=== PATIENT | female | born 1995 | race Caucasian/White ===

== ENCOUNTER 2016-09-28 12:09 | Emergency (ER) | payer BC ==
[2016-09-28 14:28] LABS: Hematocrit 42 % (35-47); Hemoglobin 13.8 g/dl (12.0-16.0); Mean Corpuscular HGB Conc 33 g/dl (31-36); Mean Corpuscular Hemoglobin 28 pg (27-31); Mean Corpuscular Volume 84 fL (80-97); Mean Platelet Volume 8 um3 (7.4-10.4); Red Blood Count 4.94 10^6/ul (4.0-5.4); Red Cell Distribution Width 14 % (10.5-15); White Blood Count 9.4 10^3/ul (3.5-10.8)
[2016-09-28 14:45] LABS: ALT 44 U/L (7-52); AST 34 U/L (13-39); Albumin 4.9 g/dL (3.2-5.2); Alkaline Phosphatase 68 U/L (34-104); Anion Gap 10 mmol/L (2-11); Blood Urea Nitrogen 10 mg/dL (6-24); CO2 Carbon Dioxide 23 mmol/L (22-32); Calcium 10.1 mg/dL (8.6-10.3); Chloride 103 mmol/L (101-111); EGFR African American 112.7 (>60); EGFR Non-African American 87.6 (>60); Globulin 3.2 g/dL (2-4); Glucose 94 mg/dL (70-100); Magnesium 1.9 mg/dL (1.9-2.7); Potassium 3.9 mmol/L (3.5-5.0); Sodium 136 mmol/L (133-145); Total Protein 8.1 g/dL (6.4-8.9)
[2016-09-28] MEDS: NS 0.9% 1000 ML* 2,000 ML IV ONE ×2 (15:12→15:44)
[2016-09-28 15:20] VITALS: BP 111/66
[2016-09-28 15:26] LABS: Urine Bilirubin Negative (Negative); Urine Glucose Negative (Negative); Urine Nitrite Negative (Negative)
--- NOTE | 2016-09-28 21:58 | ED ---
Victor M Williamson Auryana, scribed for Carlos Ng MD on 09/28/16 at 1359 . Palpitations / Dysrhythmia - HPI Summary HPI Summary: 21 year old female comes in with palpitations and CUMMINGS starting this morning while walking at work. She reports that she "felt fine" this morning but at work her heart began to race and she was SOB while walking. At school HR 124- on arrival 105- normal HR 60-80 per patient. She also states that with the exertion she has pain underneath her ribs. She reports that yesterday she had one episode of dizziness and nausea with diarrhea due to nervousness per patient - now resolved. She denies any hair loss, fever/temperature fluctuations , chills, abdominal pain, back pain, chest pain, calf pain, or any LE edema. No recent surgeries. She reports good fluid intake. She denies any oral control pills - states was was control and will be filling new Rx soon. She does not believe she is . PMHx is significant for oral surgery - EKG for clearance and to monitor HR in Sx. No history of HTN, HLD, DM, or heart murmurs. FMHx is significant for thyroid disease-hyperthyroid. - History of Current Complaint Chief Complaint: EDDysrhythmPalp Time Seen by Provider: 09/28/16 13:40 Hx Obtained From: Patient Onset/Duration: Sudden Onset - THIS MORING, Lasting Hours, Still Present Timing: Constant Severity Initially: Mild Severity Currently: Mild Character: Fast - >100 Aggravating: Exertion Associated Signs & Symptoms: Dizzy - YESTERDAY - NONE NOW, Shortness of Breath, Nausea - YESTERDAY - NONE NOW - Allergy/Home Medications Allergies/Adverse Reactions: Allergies Allergy/AdvReac Type Severity Reaction Status Date / Time No Known Allergies Allergy Verified 09/28/16 15:11 PMH/Surg Hx/FS Hx/Imm Hx Endocrine/Hematology History: Denies: Hx Thyroid Disease Cardiovascular History: Denies: Hx Hypertension - Surgical History Surgery Procedure, Year, and Place: ORAL SURGERY Infectious Disease History: No Infectious Disease History: Denies: Traveled Outside the [place] in Last 30 Days - Family History Known Family History: Positive: Other - thyroid disease - both siblings Negative: Cardiac Disease - Social History Occupation: Employed Full-time Lives: With Family - WITH SIGNIFICANT OTHER Alcohol Use: None Hx Substance Use: No Substance Use Type: Reports: None Hx Tobacco Use: No Smoking Status (MU): Never Smoked Tobacco Review of Systems Positive: Other - dizziness - yesterday - now resolved. Negative: Fever Eyes: Negative ENT: Negative Positive: Palpitations, Other - pain underneath the ribs . Negative: Chest Pain Positive: Shortness Of Breath - CUMMINGS Gastrointestinal: Negative Negative: Abdominal Pain, Diarrhea - one episode yesterday - no resolved, Nausea - now resolved Genitourinary: Negative Musculoskeletal: Negative Negative: Edema Skin: Negative Neurological: Negative Psychological: Normal All Other Systems Reviewed And Are Negative: Yes Physical Exam - Summary Physical Exam Summary: The patient is well-nourished in no acute distress and in no acute pain. The skin is warm and dry and skin color reflects adequate perfusion. Good skin turgor. HEENT: The head is normocephalic and atraumatic. The pupils are equal and reactive. The conjunctivae are clear and without drainage. Nares are patent and without drainage. Mouth reveals moist mucous membranes and the throat is without erythema and exudate. The external ears are intact. The ear canals are patent and without drainage. The tympanic membranes are intact. Neck is supple with full range of motion and non-tender. There are no carotid bruits. There is no neck vein distension. Thyroid is palpable but is not enlarged. Respiratory: Chest is non-tender. Lungs are clear to auscultation and breath sounds are symmetrical and equal. Cardiovascular: Heart is regular rate and rhythm on exam. There is no murmur or rub auscultated. There is no peripheral edema and pulses are symmetrical and equal. Abdomen: The abdomen is soft and non-tender. There are normal bowel sounds heard in all four quadrants and there is no organomegaly palpated. Musculoskeletal: There is no back pain noted. Extremities are non-tender with full range of motion. There is good capillary refill. There is no peripheral edema or calf tenderness elicited. Neurological: Patient is alert and oriented to person, place and time. The patient has symmetrical motor strength in all four extremities. Cranial nerves are grossly intact. Deep tendon reflexes are symmetrical and equal in all four extremities. Psychiatric: The patient has an appropriate affect and does not exhibit any anxiety or depression. Triage Information Reviewed: Yes Vital Signs On Initial Exam: Initial Vitals Temp Pulse Resp BP Pulse Ox 99.3 F 123 20 146/87 100 09/28/16 12:16 09/28/16 12:16 09/28/16 12:16 09/28/16 12:16 09/28/16 12:16 Vital Signs Reviewed: Yes Diagnostics - Vital Signs Vital Signs Temp Pulse Resp BP Pulse Ox 09/28/16 13:20 99.0 F 105 20 131/93 100 09/28/16 12:20 98.2 F 128 16 146/87 100 09/28/16 12:16 99.3 F 123 20 146/87 100 - Laboratory Lab Results: Lab Results 09/28/16 09/28/16 09/28/16 Range/Units 14:20 14:20 14:20 WBC 9.4 (3.5-10.8) 10^3/ul RBC 4.94 (4.0-5.4) 10^6/ul Hgb 13.8 (12.0-16.0) g/dl Hct 42 (35-47) % MCV 84 (80-97) fL MCH 28 (27-31) pg MCHC 33 (31-36) g/dl RDW 14 (10.5-15) % Plt Count 332 (150-450) 10^3/ul MPV 8 (7.4-10.4) um3 Neut % (Auto) 71.8 (38-83) % Lymph % (Auto) 22.0 L (25-47) % [place] % (Auto) 5.4 (1-9) % Eos % (Auto) 0.1 (0-6) % Baso % (Auto) 0.7 (0-2) % Absolute Neuts (auto) 6.7 (1.5-7.7) 10^3/ul Absolute Lymphs (auto) 2.1 (1.0-4.8) 10^3/ul Absolute Monos (auto) 0.5 (0-0.8) 10^3/ul Absolute Eos (auto) 0 (0-0.6) 10^3/ul Absolute Basos (auto) 0.1 (0-0.2) 10^3/ul Absolute Nucleated RBC 0 10^3/ul Nucleated RBC % 0 D-Dimer, Quantitative (Less Than 230) ng/mL Sodium 136 (133-145) mmol/L Potassium 3.9 (3.5-5.0) mmol/L Chloride 103 (101-111) mmol/L Carbon Dioxide 23 (22-32) mmol/L Anion Gap 10 (2-11) mmol/L BUN 10 (6-24) mg/dL Creatinine 0.83 (0.51-0.95) mg/dL Est GFR ( Amer) 112.7 (>60) Est GFR (Non-Af Amer) 87.6 (>60) BUN/Creatinine Ratio 12.0 (8-20) Glucose 94 (70-100) mg/dL Lactic Acid 0.9 (0.5-2.0) mmol/L Calcium 10.1 (8.6-10.3) mg/dL Magnesium 1.9 (1.9-2.7) mg/dL Total Bilirubin 0.70 (0.2-1.0) mg/dL AST 34 (13-39) U/L ALT 44 (7-52) U/L Alkaline Phosphatase 68 (34-104) U/L Troponin I 0.00 (<0.04) ng/mL Total Protein 8.1 (6.4-8.9) g/dL Albumin 4.9 (3.2-5.2) g/dL Globulin 3.2 (2-4) g/dL Albumin/Globulin Ratio 1.5 (1-3) TSH 2.20 (0.34-5.60) mcIU/mL Beta HCG, Quant < 0.60 mIU/mL Urine Color Urine Appearance Urine pH (5-9) Ur Specific [place] (1.010-1.030) Urine Protein (Negative) Urine Ketones (Negative) Urine Blood (Negative) Urine Nitrate (Negative) Urine Bilirubin (Negative) Urine Urobilinogen (Negative) Ur Leukocyte Esterase (Negative) Urine Glucose (Negative) 09/28/16 09/28/16 Range/Units 14:20 15:15 WBC (3.5-10.8) 10^3/ul RBC (4.0-5.4) 10^6/ul Hgb (12.0-16.0) g/dl Hct (35-47) % MCV (80-97) fL MCH (27-31) pg MCHC (31-36) g/dl RDW (10.5-15) % Plt Count (150-450) 10^3/ul MPV (7.4-10.4) um3 Neut % (Auto) (38-83) % Lymph % (Auto) (25-47) % [place] % (Auto) (1-9) % Eos % (Auto) (0-6) % Baso % (Auto) (0-2) % Absolute Neuts (auto) (1.5-7.7) 10^3/ul Absolute Lymphs (auto) (1.0-4.8) 10^3/ul Absolute Monos (auto) (0-0.8) 10^3/ul Absolute Eos (auto) (0-0.6) 10^3/ul Absolute Basos (auto) (0-0.2) 10^3/ul Absolute Nucleated RBC 10^3/ul Nucleated RBC % D-Dimer, Quantitative < 200 (Less Than 230) ng/mL Sodium (133-145) mmol/L Potassium (3.5-5.0) mmol/L Chloride (101-111) mmol/L Carbon Dioxide (22-32) mmol/L Anion Gap (2-11) mmol/L BUN (6-24) mg/dL Creatinine (0.51-0.95) mg/dL Est GFR ( Amer) (>60) Est GFR (Non-Af Amer) (>60) BUN/Creatinine Ratio (8-20) Glucose (70-100) mg/dL Lactic Acid (0.5-2.0) mmol/L Calcium (8.6-10.3) mg/dL Magnesium (1.9-2.7) mg/dL Total Bilirubin (0.2-1.0) mg/dL AST (13-39) U/L ALT (7-52) U/L Alkaline Phosphatase (34-104) U/L Troponin I (<0.04) ng/mL Total Protein (6.4-8.9) g/dL Albumin (3.2-5.2) g/dL Globulin (2-4) g/dL Albumin/Globulin Ratio (1-3) TSH (0.34-5.60) mcIU/mL Beta HCG, Quant mIU/mL Urine Color Yellow Urine Appearance Cloudy Urine pH 6.0 (5-9) Ur Specific [place] 1.012 (1.010-1.030) Urine Protein Negative (Negative) Urine Ketones Trace H (Negative) Urine Blood Negative (Negative) Urine Nitrate Negative (Negative) Urine Bilirubin Negative (Negative) Urine Urobilinogen Negative (Negative) Ur Leukocyte Esterase Negative (Negative) Urine Glucose Negative (Negative) Result Diagrams: 09/28/16 14:20 09/28/16 14:20 Lab Statement: Any lab studies that have been ordered have been reviewed, and results considered in the medical decision making process. - EKG 12:20 EKG Rhythm: Sinus Tachycardia Ectopy: : PVCs EKG Interpretation: sinus tachycardia, no PVCs, normal axis Re-Evaluation - Re-Evaluation First Eval Re-Evaluation Time: 15:37 - discussed labs and plan of action Change: Improved Course/Dx - Course Assessment/Plan: 21 year old female comes in with palpitations and CUMMINGS starting this morning while walking at work- HR 124, on arrival 105. She also states that with the exertion she has pain underneath her ribs. She denies any hair loss, fever/temperature fluctuations, chills, abdominal pain, back pain, chest pain, calf pain, or any LE edema. She denies any oral control pills previously on control and will be filling new Rx soon. She does not believe she is . No history of HTN, HLD, DM, or heart murmurs. FMHx is significant for thyroid disease-hyperthyroid. EKG (12:20) sinus tachycardia, no PVCs , normal axis. LABS: NML - TSH (2.20), Beta HCG (<.60), D-Dimer (<200 negative). UA: trace ketones. Discussed labs with patient - improved. Will discharged with diagnosis of tachycardia, orthostatic hypotension, and dehydration. Advised to return to work saturday and follow up with PCP. - Diagnoses Differential Diagnosis/HQI/PQRI: Positive: Coronary Artery Disease, Hypokalemia , Pulmonary Embolism, Other - dehydration, tachycaria, hyperthyroidism Provider Diagnoses: Dehydration, Orthostatic hypotension, Tachycardia Discharge - Discharge Plan Condition: Stable Disposition: HOME Patient Education Materials: Dehydration (ED), Hypotension (ED), Tachycardia ( ED) Forms: *Work Release Referrals: Audra Woodson PA [Primary Care Provider] - 3 Days The documentation as recorded by the Victor M mallory Auryana accurately reflects the service I personally performed and the decisions made by Berenice huerta Drew, MD.
== END 2016-09-28 17:11 | disposition home or self-care (01) ==
LOC: ED 12:09
DX: E86.0 Dehydration (principal); I95.1 Orthostatic hypotension; R00.0 Tachycardia, unspecified
CPT/HCPCS: 36415; 80053; 81003; 83605; 83735; 84443; 84484; 84702; 85025; 85379; 93005

== ENCOUNTER 2017-07-29 07:09 | Inpatient (IN) | payer BC, MEDICAID ==
[2017-07-29] MEDS ORDERED: Dinoprostone* 10 MG VAG.SUPP VAGINAL ONE ×2 (07:59→20:38)
[2017-07-30] MEDS ORDERED: Nalbuphine* 20 MG/ML 1 ML VIAL IV PRN (12:49)
[2017-07-30] MEDS ORDERED: Promethazine INJ(RESTRICTED)* 25 MG/ML 1 ML VIAL IV PRN (12:50)
[2017-07-30 13:23] LABS: ABS Basophils 0.1 10^3/ul (0-0.2); ABS Eosinophils 0 10^3/ul (0-0.6); ABS Lymphocytes 1.4 10^3/ul (1.0-4.8); ABS Monocytes 0.7 10^3/ul (0-0.8); ABS Neutrophils 9.6 10^3/ul (1.5-7.7); ABS Nucleated RBC 0 10^3/ul; Eosinophil % 0.1 % (0-6); Hematocrit 36 % (35-47); Hemoglobin 12.4 g/dl (12.0-16.0); Lymphocyte % 11.8 % (25-47); Mean Corpuscular HGB Conc 34 g/dl (31-36); Mean Corpuscular Hemoglobin 31 pg (27-31); Mean Corpuscular Volume 91 fL (80-97); Mean Platelet Volume 8 um3 (7.4-10.4); Nucleated Red Blood Cells % 0; Platelet Count 295 10^3/ul (150-450); Red Blood Count 3.99 10^6/ul (4.0-5.4); Red Cell Distribution Width 14 % (10.5-15); White Blood Count 11.7 10^3/ul (3.5-10.8)
[2017-07-30] MEDS ORDERED: Oxytocin in LR* 20 UNITS/1,000 ML BAG IVPB ONE (19:35)
[2017-07-30] MEDS ORDERED: Oxytocin in LR* 20 UNITS/1,000 ML BAG IVPB SCH (20:00)
[2017-07-30] MEDS ORDERED: OBEPIDURAL* 250 ML EPIDURAL ONE (23:58)
[2017-07-31] MEDS ORDERED: Famotidine TAB* 20 MG PO PRN (00:32)
[2017-07-31] MEDS ORDERED: Phenylephrine IV* 40 MCG/ML 10 ML SYRINGE IV PUSH PRN (00:32)
[2017-07-31] MEDS ORDERED: EPHEDrine (Pressors)* 50 MG/ML VIAL IV PUSH PRN ×2 (00:32)
[2017-07-31] MEDS ORDERED: Sodium Citrate/Citric Acid* 15 ML UDC PO PRN (00:32)
[2017-07-31] MEDS: Phenylephrine IV* 40 MCG/ML 10 ML SYRINGE IV PUSH PRN ×2 (00:46→00:49)
[2017-07-31] MEDS ORDERED: OBEPIDURAL* 250 ML EPIDURAL SCH (01:00)
[2017-07-31] MEDS ORDERED: Acetaminophen TAB* 325 MG PO PRN (11:21)
[2017-07-31] MEDS ORDERED: Glycerin ADULT SUPP PR PRN (11:21)
[2017-07-31] MEDS ORDERED: Witch Hazel PAD* JAR TOPICAL PRN (11:21)
[2017-07-31] MEDS ORDERED: Dibucaine 1% 28.35 GM TUBE PR PRN (11:21)
[2017-07-31] MEDS: Ibuprofen TAB* 600 MG PO PRN ×2 (12:28→18:22)
[2017-07-31] MEDS ORDERED: Simethicone TAB* 80 MG TAB.CHEW PO SCH (12:30)
[2017-07-31] MEDS: Docusate CAP* 100 MG PO SCH ×2 (14:32→20:44)
[2017-07-31] MEDS ORDERED: Lidocaine 1% MPF* 2 ML VIAL ONE (16:24)
[2017-08-01] MEDS: Ibuprofen TAB* 600 MG PO PRN ×3 (00:30→17:40)
[2017-08-01 05:55] LABS: ABS Basophils 0 10^3/ul (0-0.2); ABS Eosinophils 0.1 10^3/ul (0-0.6); ABS Lymphocytes 1.9 10^3/ul (1.0-4.8); ABS Monocytes 0.9 10^3/ul (0-0.8); ABS Neutrophils 10.6 10^3/ul (1.5-7.7); ABS Nucleated RBC 0 10^3/ul; Eosinophil % 0.5 % (0-6); Hematocrit 24 % (35-47); Hemoglobin 7.9 g/dl (12.0-16.0); Lymphocyte % 14.1 % (25-47); Mean Corpuscular HGB Conc 33 g/dl (31-36); Mean Corpuscular Hemoglobin 31 pg (27-31); Mean Corpuscular Volume 92 fL (80-97); Mean Platelet Volume 7.9 um3 (7.4-10.4); Nucleated Red Blood Cells % 0; Platelet Count 188 10^3/ul (150-450); Red Blood Count 2.59 10^6/ul (4.0-5.4); Red Cell Distribution Width 14 % (10.5-15); White Blood Count 13.5 10^3/ul (3.5-10.8)
[2017-08-01] MEDS: Docusate CAP* 100 MG PO SCH ×3 (09:01→20:55)
[2017-08-01] MEDS: Ferrous Gluconate TAB* 324 MG TAB PO SCH ×2 (09:01→20:55)
--- NOTE | 2017-08-01 10:59 | PTEDU ---
Patient Name: RUBENS CHAMPION RUBENS CHAMPION selected video: Never Ever Shake a Baby to view on 08/01/2017 at 10:58:23 AM from [facility] [id number]
[2017-08-02] MEDS: Ibuprofen TAB* 600 MG PO PRN (00:13)
[2017-08-02 07:53] VITALS: BP 121/82
[2017-08-02] MEDS: Docusate CAP* 100 MG PO SCH (09:22)
[2017-08-02] MEDS: Ferrous Gluconate TAB* 324 MG TAB PO SCH (09:22)
== END 2017-08-02 10:10 | disposition home or self-care (01) | DRG 560 ==
LOC: MCHOBOUT 07:09 → MCHOB 08:01
PROVIDERS: ADMIT Obstetrics & Gynecology; ATTEND Obstetrics & Gynecology
PROC: 3E033VJ Introduction of Other Hormone into Peripheral Vein, Percutaneous Approach (ICD-10-PCS; principal; 2017-08-02)
PROC: 10907ZC Drainage of Amniotic Fluid, Therapeutic from Products of Conception, Via Natural or Artificial Opening (ICD-10-PCS; 2017-08-02)
PROC: 3E0P7VZ Introduction of Hormone into Female Reproductive, Via Natural or Artificial Opening (ICD-10-PCS; 2017-08-02)
PROC: 10E0XZZ Delivery of Products of Conception, External Approach (ICD-10-PCS; 2017-08-02)
PROC: 4A1HX4Z Monitoring of Products of Conception, Cardiac Electrical Activity, External Approach (ICD-10-PCS; 2017-08-02)
PROC: 0HQ9XZZ Repair Perineum Skin, External Approach (ICD-10-PCS; 2017-08-02)
DX: O48.0 Post-term pregnancy (principal); O70.0 First degree perineal laceration during delivery; Z3A.40 40 weeks gestation of pregnancy; Z37.0 Single live birth; O90.81 Anemia of the puerperium
CPT/HCPCS: 36415; 85025; 86850; 86900; 86901; A9270-GY; J2300; J2550